=== PATIENT | female | born 1980 | race Native Hawaiian/Other Pacific Islander ===

== ENCOUNTER 2018-11-29 07:40 | Day surgery (SDC) | payer OTHER ==
[~2018-11-29] VITALS: Ht 160 cm; Wt 104.8 kg
[2018-11-29 08:32] LABS: PLATELET COUNT 233 K/uL (152-353)
[2018-11-29 09:01] LABS: POTASSIUM 4.1 mmol/L (3.6-5.2)
== END 2018-11-29 12:40 | disposition home or self-care (01) ==
LOC: OR 07:40
PROVIDERS: Student in an Organized Health Care Education/Training Program
PROC: 0FT44ZZ Resection of Gallbladder, Percutaneous Endoscopic Approach (ICD-10-PCS; principal; 2018-11-29)
PROC: 0WQF4ZZ Repair Abdominal Wall, Percutaneous Endoscopic Approach (ICD-10-PCS; 2018-11-29)
DX: K80.10 Calculus of gallbladder with chronic cholecystitis without obstruction (principal); K42.9 Umbilical hernia without obstruction or gangrene
CPT/HCPCS: 80053; 81025; 85027; 94640; 94664; 94760; J0132; J0330; J0690; J1100; J1170; J1885; J2001; J2250; J2405; J2704; J2710; J3010; J3490

== ENCOUNTER 2020-10-31 07:55 | Outpatient (CLI) | payer OTHER ==
[2020-10-31 10:45] LABS: PLATELET COUNT 234 K/uL (152-353)
[2020-10-31 11:03] LABS: POTASSIUM 4.2 mmol/L (3.6-5.2)
== END 2020-10-31 22:10 | disposition home or self-care (01) ==
LOC: US 07:55 → LAB 07:55 → US 08:00
PROVIDERS: ATTEND Nurse Practitioner Family
DX: N64.4 Mastodynia (principal); R53.83 Other fatigue; E55.9 Vitamin D deficiency, unspecified; E78.2 Mixed hyperlipidemia
CPT/HCPCS: 36415; 80053; 80061; 81025; 82306; 82607; 82670; 83001; 83002; 84402; 84403; 84436; 84443; 84481; 85027; 86376; G0279

== ENCOUNTER 2020-12-12 10:09 | Outpatient (CLI) | payer OTHER | END 2020-12-12 22:01 | disposition home or self-care (01) | LOC: RESP 10:09 | PROVIDERS: ATTEND Nurse Practitioner Primary Care | DX: E55.9 Vitamin D deficiency, unspecified (principal); E53.8 Deficiency of other specified B group vitamins; R07.89 Other chest pain | CPT/HCPCS: 36415; 82306; 82550; 82553; 82607; 84484; 93005 ==

== ENCOUNTER 2021-01-27 14:54 | Emergency (ER) | payer OTHER ==
[~2021-01-27] VITALS: Ht 160 cm; Wt 103.9 kg
[2021-01-27] MEDS ORDERED: VENL37.511 PO (15:22)
[2021-01-27 15:41] LABS: PLATELET COUNT 233 K/uL (152-353)
[2021-01-27 15:49] LABS: POTASSIUM 3.7 mmol/L (3.6-5.2); SODIUM 139 mmol/L (136-145)
[2021-01-27 16:30] VITALS: BP 136/76; TEMP 97.9
== END 2021-01-27 16:47 | disposition home or self-care (01) ==
LOC: ED 14:54
PROVIDERS: Emergency Medicine
DX: G44.209 Tension-type headache, unspecified, not intractable (principal); F41.8 Other specified anxiety disorders; R53.81 Other malaise
CPT/HCPCS: 80053; 81025; 84484; 85027; 93005; 96372; 99284; J1885